=== PATIENT | male | born 1990 | race Caucasian/White ===

== ENCOUNTER 2017-08-01 23:23 | Emergency (ER) | payer OTHER ==
[~2017-08-01] VITALS: Ht 165.1 cm; Wt 73.5 kg
[2017-08-02 02:34] VITALS: BP 151/85
== END 2017-08-02 02:34 | disposition home or self-care (01) ==
LOC: ED 23:23
DX: H10.32 Unspecified acute conjunctivitis, left eye (principal)

== ENCOUNTER 2020-07-02 08:35 | Emergency (ER) | payer OTHER ==
[~2020-07-02] VITALS: Ht 165.1 cm; Wt 80.7 kg
[2020-07-02 08:38] VITALS: Ht 165.1 cm; Wt 80.7 kg
[2020-07-02 10:15] VITALS: BP 132/87
== END 2020-07-02 10:15 | disposition home or self-care (01) ==
LOC: ED 08:35
DX: S40.012A Contusion of left shoulder, initial encounter (principal); V43.52XA Car driver injured in collision with other type car in traffic accident, initial encounter; Y93.I9 Activity, other involving external motion; Y92.411 Interstate highway as the place of occurrence of the external cause; Y99.8 Other external cause status
CPT/HCPCS: Q0092